=== PATIENT | female | born 1990 | race Caucasian/White ===

== ENCOUNTER 2016-11-16 18:06 | Emergency (ER) ==
[2016-11-16 18:16] VITALS: BP 106/72; TEMP 99.2; BMI 23.3
[2016-11-16] MEDS ORDERED: TENIVAC IM ONE (18:34)
[2016-11-16] MEDS ORDERED: LIDOCAINE 1 % AMP 5 ML (SUTURES) IM STA (19:04)
[2016-11-16] MEDS ORDERED: ROCEPHIN IM STA (19:04)
[2016-11-16] MEDS ORDERED: NORCO 5-325 PO STA (19:05)
--- NOTE | 2016-11-16 19:15 | ED.PDOC ---
General ED Provider: Dr. AWA CAMACHO-ER Chief Complaint: Foot Pain/Injury Stated Complaint: i had a thorn in my foot while riding [employer] but i removed all of the thorn--its red and painful Time Seen by Physician: 18:10 Mode of Arrival: Wheelchair Information Source: Patient Exam Limitations: No limitations Nursing and Triage Documentation Reviewed and Agree: Yes Skin Complaint Exam - Skin/Soft Tissue Complaint/Exam Onset/Duration: 24hrs Symptoms Are: Still present Timing: Constant Initial Severity: Mild Current Severity: Mild Location: medial aspect of left foot Character: Reports: Redness, Swelling, Raised, Painful Aggravating: Reports: Touch Alleviating: Reports: None Associated Signs and Symptoms: Reports: Tenderness, Red streaks. Denies: Fever , Chills, Itching, Drainage, Bruising, Joint swelling Related History: Reports: Similar episode Related Surgical History: Reports: None Recent Exposure to Others w/Similar Symptoms: No Skin Findings: Present: Erythema Joint Tenderness Present: No Differential Diagnoses: Cellulitis, Foreign Body, Infection Review of Systems - Review Of Systems Constitutional: Reports: No symptoms Eyes: Reports: No symptoms Ears, Nose, Mouth, Throat: Reports: No symptoms Respiratory: Reports: No symptoms Cardiac: Reports: No symptoms GI: Reports: No symptoms : Reports: No symptoms Musculoskeletal: Reports: No symptoms Skin: Reports: No symptoms Neurological: Reports: No symptoms Endocrine: Reports: No symptoms Hematologic/Lymphatic: Reports: No symptoms All Other Systems: Reviewed and Negative Past Medical History - Past Medical History Endocrine: Reports: Unknown Cardiovascular: Reports: Unknown Respiratory: Reports: Unknown Hematological: Reports: Unknown Gastrointestinal: Reports: Unknown Genitourinary: Reports: Unknown Neuro/Psych: Reports: Unknown Musculoskeletal: Reports: Unknown Cancer: Reports: Unknown Last Menstrual Period: 1 WEEK - Surgical History General Surgical History: Reports: Unknown - Family History Family History: Reports: Unknown - Social History Smoking Status: Current every day smoker, Heavy tobacco smoker Hx Substance Use: No (METH) Alcohol Screening: Occasionally Lives: With family - Immunizations Tetanus Shot up to Date: No ("LONG TIME") Physical Exam - Physical Exam Appearance: Well-appearing, No pain distress, Well-nourished Pain Distress: Mild Eyes: NINI, EOMI, Conjunctiva clear ENT: Ears normal, Nose normal, Oropharynx normal Neck: Supple Respiratory: Airway patent Cardiovascular: RRR, Pulses normal, No rub, No murmur GI/: Soft, Nontender, No masses, Bowel sounds normal, No Organomegaly Musculoskeletal: Normal strength, ROM intact, No edema, No calf tenderness Skin: Warm Neurological: Sensation intact, Motor intact, Reflexes intact, Cranial nerves intact, Alert, Oriented Psychiatric: Affect appropriate Interpretation - Radiology Interpretation Radiology Interpretation By: Radiologist Radiology Results: Negative Critical Care Note - Critical Care Note Total Time (mins): 0 Course - Course Orders, Labs, Meds: Orders Category Date Time Status Wound care [ED WOUND CARE] .ONCE EMERGENCY 11/16/16 19:12 Active Ceftriaxone Sodium [Rocephin] MEDS 11/16/16 19:04 Discontinued 1 gm IM ONCE STA Hydrocodone Bit/Acetaminophen [[place] 5-325] MEDS 11/16/16 19:05 Discontinued 1 tab PO ONCE STA Lidocaine HCl/Pf [Lidocaine 1 % Amp 5 ml (Sutures)] MEDS 11/16/16 19:04 Discontinued 2.1 ml IM ONCE STA Tetanus and Diphtheria Tox/Pf [Tenivac] MEDS 11/16/16 18:34 Discontinued 0.5 ml IM .ONCE ONE FOOT, RIGHT 3 VIEWS Stat RADS 11/16/16 18:33 Taken Medications Discontinued Medications Generic Name Dose Route Start Last Admin Trade Name Freq PRN Reason Stop Dose Admin Acetaminophen/Hydrocodone Bitart 1 tab 11/16/16 19:05 [place] 5-325 PO 11/16/16 19:06 ONCE STA Ceftriaxone Sodium 1 gm 11/16/16 19:04 Rocephin IM 11/16/16 19:05 ONCE STA Lidocaine HCl 2.1 ml 11/16/16 19:04 Lidocaine 1 % Amp 5 Ml (Sutures) IM 11/16/16 19:05 ONCE STA Tetanus/Diphtheria Toxoids Adsorbed 0.5 ml 11/16/16 18:34 11/16/16 18:47 Tenivac IM 11/16/16 18:35 0.5 ml .ONCE ONE Administration Vital Signs: Temp Pulse Resp BP Pulse Ox 11/16/16 18:08 99.2 F 120 H 20 106/72 96 Departure - Departure Time of Disposition: 19:15 Disposition: HOME SELF-CARE Discharge Problem: Puncture wound Instructions: Puncture Wound (ED) Condition: Good Pt referred to PMD for follow-up: Yes Additional Instructions: clindamycin 150mg tid x 7days--norco 5mg q 4hrs prn pain #7---f/u with pcp tomorrow to recheck wound Allergies/Adverse Reactions: Allergies No Known Allergies Allergy (Unverified 11/16/16 18:16) Home Medications: Ambulatory Orders 1 [No Reported Medications] 11/16/16 Disposition Discussed With: Patient, Family
--- NOTE | 2016-11-17 07:17 | DI ---
EXAM: Right foot three view HISTORY: Puncture wound COMPARISON: None FINDINGS: The bones are normal. The joints are normal. No focal soft tissue abnormality. IMPERSSION: Normal examination.
== END 2016-11-16 19:47 | disposition home or self-care (01) ==
LOC: ED 18:06
DX: S91.339A Puncture wound without foreign body, unspecified foot, initial encounter (principal); F17.210 Nicotine dependence, cigarettes, uncomplicated; W26.8XXA Contact with other sharp object(s), not elsewhere classified, initial encounter
CPT/HCPCS: 90471; 96372; 99283